=== PATIENT | male | born 1950 | race Caucasian/White ===

== ENCOUNTER → 2021-06-15 | Outpatient (CLI) | payer MEDICARE, OTHER ==
[~2021-06-15] MED LIST: EPIN0.3I11; GLUC1TAB58 PO; SILD50TA2 PO; THERTAB52 PO
--- NOTE | 2021-06-15 11:09 | REP ---
INDICATION: NEUTROPENIA. COMPARISON: None. TECHNIQUE: Real-time sonographic evaluation of ABDOMEN performed. FINDINGS: The gallbladder demonstrates no evidence of intraluminal sludge or calculi, wall thickening or pericholecystic fluid. There is no intrahepatic or extrahepatic biliary dilatation, common bile duct measures 4 mm in maximum diameter. The liver demonstrates homogeneous echotexture with no gross mass. The pancreas demonstrates homogeneous echotexture with no gross mass. Pancreas is not well seen due to overlying bowel gas. Spleen is normal in size with no intrinsic abnormality, measuring 9.9 cm in length. There is no hydronephrosis of either kidney. There is a cyst of the mid to lower right kidney measuring 4.8 x 4.4 x 4.6 cm. There is a cyst of the lower left kidney measuring 8.3 x 6.4 x 8.7 cm. The right kidney measures 13.1 x 5.7 x 7.0 cm. Left renal dimensions are 12.3 x 4.4 x 6.7 cm. The abdominal aorta is normal in caliber with no aneurysm. No free fluid is seen. IMPRESSION: There is a benign cyst in each kidney. No other significant abnormality identified. <Electronically signed by Mayur Mora > 06/15/21 [id number]
== END ==
LOC: M RAD 10:21
PROVIDERS: ATTEND Internal Medicine Hematology & Oncology
DX: D69.6 Thrombocytopenia, unspecified (principal); D70.9 Neutropenia, unspecified